=== PATIENT | female | born 1935 | race Caucasian/White ===

== ENCOUNTER 2018-07-03 20:16 | Emergency (ER) | payer OTHER ==
[~2018-07-03] VITALS: Ht 167.6 cm; Wt 72.6 kg
[~2018-07-03 20:16] MED LIST: CELEBREX200 MG PO; FENOFIBRATE134 MG PO; LISINOPRIL40 MG PO; LORATADINE10 MG PO; PAXIL10 MG PO
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
--- OUTSIDE RECORDS SUMMARY | 2018-08-16 03:36 | XMS REPORT ---
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 Active Problem Urinary tract infection N39.0 Active Problem Acute upper respiratory infection J06.9 Active Problem Acute pharyngitis J02.9 Active Problem Abdominal aneurysm, ruptured I71.3 Active Problem Cellulitis of other sites L03.818 Active Problem Need for prophylactic vaccination and inoculation against influenza V04.81 Active Problem 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 Active Problem 1St degree AV block I44.0 Active Problem Essential hypertension I10 Active Problem RBBB I45.10 Active Problem Other specified cardiac dysrhythmias I49.8 Active Problem Other peripheral vascular disease I73.89 Active Problem Pre-op evaluation Z01.818 Active Problem Abnormal EKG R94.31 Active Problem Body mass index 25.0-25.9, adult Z68.25 Active Problem Aortic aneurysm I71.9 Active Problem Mechanical complication of genitourinary device, implant, and graft, other T83.89XA Active Problem Encounter for general adult medical examination with abnormal findings Z00.01 Active Problem Other and unspecified hyperlipidemia E78.5 Active Problem Anxiety state F41.1 Active Problem Routine general medical examination at a health care facility Z00.00 Active Problem Major depressive disorder, recurrent episode F33.9 Active Problem Senile cataract H25.9 Active Problem Atherosclerosis of aorta I70.0 Active Problem Sciatica of right side M54.31 Active Problem Body mass index (BMI) of 20.0-20.9 in adult Z68.20 Active Problem 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 Active Problem 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 Problem Acute frontal sinusitis J01.10 Active Problem Allergic rhinitis due to pollen J30.1 Active Problem Orthostatic hypotension I95.1 Active Problem Cystocele, midline N81.11 Active Problem Insomnia G47.00 Active Problem Anal or rectal pain K62.89 Active Problem Regional enteritis K50.90 Active Problem Generalized osteoarthrosis, unspecified site M15.9 Active Problem Neoplasm of uncertain behavior of skin D48.5 Active Problem Mixed urge and stress incontinence N39.46 Active Problem Sciatica M54.30 Active Problem Dizziness and giddiness R42 Active Problem Hypersomnia due to another medical condition 327.14 Active Medications Medication Code System Code Instructions Start Date End Date Status Dosage Zithromax Z-Arnulfo [facility] [address]-07 250 MG Orally Once a day March 07, 2017 March 12, 2017 Active 2 tablets on the first day, then 1 tablet daily for 4 days Benzonatate [facility] [address]-43 200 MG Orally Three times a day prn cough March 07, 2017 Active 1 capsule as needed Results No Known Results Summary Purpose [employer] Submission
--- OUTSIDE RECORDS SUMMARY | 2018-08-16 03:37 | XMS REPORT ---
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 Active Problem Other and unspecified hyperlipidemia E78.5 Active Problem Body mass index 25.0-25.9, adult Z68.25 Active Problem Aortic aneurysm I71.9 Active Problem Regional enteritis K50.90 Active Problem Insomnia G47.00 Active Problem Orthostatic hypotension I95.1 Active Problem Dizziness and giddiness R42 Active Problem Acute frontal sinusitis J01.10 Active Problem Sciatica M54.30 Active Problem Need for prophylactic vaccination and inoculation against influenza V04.81 Active Problem Neoplasm of uncertain behavior of skin D48.5 Active Problem Hypersomnia due to another medical condition 327.14 Active Problem Other specified cardiac dysrhythmias I49.8 Active Problem Other peripheral vascular disease I73.89 Active Problem 1St degree AV block I44.0 Active Problem RBBB I45.10 Active Problem Body mass index (BMI) of 20.0-20.9 in adult Z68.20 Active Problem 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 Active Assessment Other chronic pain G89.29 Active Assessment Sciatica M54.30 Active Assessment Muscle spasm M62.838 Active Problem First degree hemorrhoids K64.0 Active Problem Atherosclerosis of aorta I70.0 Active Problem Other chronic pain G89.29 Active Problem Mixed urge and stress incontinence N39.46 Active Problem Senile cataract H25.9 Active Problem Need for prophylactic vaccination and inoculation against influenza Z23 Active Problem Routine general medical examination at a health care facility Z00.00 Active Problem 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 Active Problem Pre-op evaluation Z01.818 Active Problem Sciatica of right side M54.31 Active Problem History of recent fall Z91.81 Active Problem Acute post-traumatic headache, not intractable G44.319 Active Problem Muscle spasm M62.838 Active Problem Acute upper respiratory infection J06.9 Active Problem Encounter for general adult medical examination with abnormal findings Z00.01 Active Problem Major depressive disorder, recurrent episode F33.9 Active Problem Abnormal EKG R94.31 Active Problem Anxiety state F41.1 Active Problem Gastroesophageal reflux disease without esophagitis K21.9 Active Problem Allergic rhinitis due to pollen J30.1 Active Problem GERD with esophagitis K21.0 Active Problem Generalized osteoarthrosis, unspecified site M15.9 Active Problem 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 Problem 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 Active Problem Mechanical complication of genitourinary device, implant, and graft, other T83.89XA Active Problem Anal or rectal pain K62.89 Active Problem Pernicious anemia D51.0 Active Problem Cystocele, midline N81.11 Active Medications Medication Code System Code Instructions Start Date End Date Status Dosage Fenofibrate [facility] 41754971331 54 Active TAKE ONE TABLET BY MOUTH DAILY WITH MEALS Lisinopril [facility] 51489682044 40 Active TAKE ONE TABLET BY MOUTH EVERY DAY Hydrochlorothiazide [facility] 29817154192 25 MG Orally Once a day January 19, 2018 Active 1 tablet in the morning Celebrex [facility] 28214003456 200 Active TAKE ONE CAPSULE BY MOUTH DAILY Loratadine [facility] 32297826939 10 Active TAKE ONE TABLET BY MOUTH DAILY Amlodipine Besylate [facility] 30527951586 10 MG Orally Once a day Active 1 tablet Paroxetine HCl ND 94999628240 20 MG Orally Once a day Active 1 tablet in the morning Omeprazole [facility] 09337769576 40 MG Orally Once a day April 14, 2017 Active 1 capsule Baclofen [facility] 25358400821 10 Orally Three times a day Active 1 tablet with food or milk Gabapentin ND 66290601234 100 mg Orally BiD and 2 caps at night Active 1 capsule Paxil [facility] 94127919399 20 Active TAKE ONE TABLET BY MOUTH DAILY Vital Signs Date/Time: April 20, 2018 BMI 26.47 Index Weight 164 lbs Height 66 in Temperature 97.8 F Cardiac Monitoring Heart Rate 74 /min Blood Pressure Diastolic 70 mm Hg Blood Pressure Systolic 122 mm Hg Results No Known Results Summary Purpose [employer] Submission
--- OUTSIDE RECORDS SUMMARY | 2018-08-16 03:37 | XMS REPORT ---
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 Active Problem Other and unspecified hyperlipidemia E78.5 Active Problem Body mass index 25.0-25.9, adult Z68.25 Active Problem Aortic aneurysm I71.9 Active Problem Regional enteritis K50.90 Active Problem Dizziness and giddiness R42 Active Problem Acute frontal sinusitis J01.10 Active Problem Insomnia G47.00 Active Problem Hypersomnia due to another medical condition 327.14 Active Problem Sciatica M54.30 Active Problem Orthostatic hypotension I95.1 Active Problem Neoplasm of uncertain behavior of skin D48.5 Active Problem RBBB I45.10 Active Problem Other specified cardiac dysrhythmias I49.8 Active Problem Need for prophylactic vaccination and inoculation against influenza V04.81 Active Problem 1St degree AV block I44.0 Active Problem 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 Active Problem Anxiety state F41.1 Active Problem Major depressive disorder, recurrent episode F33.9 Active Problem Acute upper respiratory infection J06.9 Active Problem Pernicious anemia D51.0 Active Problem Other peripheral vascular disease I73.89 Active Problem Allergic rhinitis due to pollen J30.1 Active Problem Senile cataract H25.9 Active Problem Routine general medical examination at a health care facility Z00.00 Active Problem Sciatica of right side M54.31 Active Problem 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 Active Problem Acute post-traumatic headache, not intractable G44.319 Active Problem Gastroesophageal reflux disease without esophagitis K21.9 Active Problem History of recent fall Z91.81 Active Problem Need for prophylactic vaccination and inoculation against influenza Z23 Active Problem Abnormal EKG R94.31 Active Problem Body mass index (BMI) of 20.0-20.9 in adult Z68.20 Active Problem Pre-op evaluation Z01.818 Active Problem Generalized osteoarthrosis, unspecified site M15.9 Active Problem GERD with esophagitis K21.0 Active Problem Mixed urge and stress incontinence N39.46 Active Problem Encounter for general adult medical examination with abnormal findings Z00.01 Active Problem Other chronic pain G89.29 Active Problem Anal or rectal pain K62.89 Active Problem 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 Problem Cystocele, midline N81.11 Active Problem Mechanical complication of genitourinary device, implant, and graft, other T83.89XA Active Problem First degree hemorrhoids K64.0 Active Problem Atherosclerosis of aorta I70.0 Active Medications Medication Code System Code Instructions Start Date End Date Status Dosage Amlodipine Besylate [facility] 37384643668 10 mg Orally Once a day January 19, 2018 Active 1 tablet Lisinopril [facility] 11690060788 40 mg Orally Once a day January 19, 2018 Active 1 tablet Hydrochlorothiazide [facility] 01386466719 25 MG Orally Once a day January 19, 2018 Active 1 tablet in the morning Results No Known Results Summary Purpose [employer] Submission
--- OUTSIDE RECORDS SUMMARY | 2018-08-16 03:37 | XMS REPORT ---
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 Barn And Property Manager Name Role Phone Yomi Barajas CP Unavailable Allergies, Adverse Reactions, Alerts Substance Reaction Event Type sulfa Info Not Available Drug Allergy Encounters Encounter Location Date [place]ill [facility] [place] Aug 25, 2014 Allergies [facility] [place] Sep 03, 2014 refills [facility] [place] Sep 23, 2014 Sinus pain [facility] [place] Sep 25, 2014 H&P 2014 [facility] [place] April 24, 2014 bacterial infection [facility] [place] Jun 30, 2014 medication [facility] Jul 04, 2014 cramps, H&P [facility] [place] March 20, 2015 dizziness [facility] [place] Oct 02, 2014 Unknown [facility] [place] Nov 18, 2014 Unknown [facility] [place] Dec 21, 2015 Refill [facility] May 29, 2015 Medication refills [facility] [place] Aug 07, 2015 Problems Problem Type Condition ICD-9 Code Onset Dates Condition Status Problem 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 Problem Anal or rectal pain K62.89 Active Problem Need for prophylactic vaccination and inoculation against influenza Z23 Active Problem Allergic rhinitis due to pollen J30.1 Active Problem Other chronic pain G89.29 Active Problem First degree hemorrhoids K64.0 Active Assessment 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 Active Problem Pernicious anemia D51.0 Active Problem 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 Active Problem Urinary tract infection N39.0 Active Problem Hypersomnia due to another medical condition 327.14 Active Problem Acute pharyngitis J02.9 Active Problem Neoplasm of uncertain behavior of skin D48.5 Active Problem Abdominal aneurysm, ruptured I71.3 Active Problem Sciatica M54.30 Active Problem 1St degree AV block I44.0 Active Problem Need for prophylactic vaccination and inoculation against influenza V04.81 Active Problem Routine general medical examination at a health care facility Z00.00 Active Problem Preoperative clearance Z01.818 Active Problem Essential hypertension I10 Active Problem 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 Active Problem Atherosclerosis of aorta I70.0 Active Problem 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 Active Problem Cellulitis of other sites L03.818 Active Problem Body mass index (BMI) of 20.0-20.9 in adult Z68.20 Active Problem Other peripheral vascular disease I73.89 Active Problem Acute upper respiratory infection J06.9 Active Problem RBBB I45.10 Active Problem 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 Active Problem Senile cataract H25.9 Active Assessment Preoperative clearance Z01.818 Active Problem Other specified cardiac dysrhythmias I49.8 Active Problem Mixed urge and stress incontinence N39.46 Active Problem Body mass index 25.0-25.9, adult Z68.25 Active Problem Cystocele, midline N81.11 Active Problem Insomnia G47.00 Active Problem Mechanical complication of genitourinary device, implant, and graft, other T83.89XA Active Problem Other and unspecified hyperlipidemia E78.5 Active Problem Generalized osteoarthrosis, unspecified site M15.9 Active Problem Aortic aneurysm I71.9 Active Problem Major depressive disorder, recurrent episode F33.9 Active Problem Orthostatic hypotension I95.1 Active Problem Anxiety state F41.1 Active Problem Dizziness and giddiness R42 Active Problem Regional enteritis K50.90 Active Problem Acute frontal sinusitis J01.10 Active Medications Medication Code System Code Instructions Start Date End Date Status Dosage Celebrex [facility] 88088500293 200 Active TAKE ONE CAPSULE BY MOUTH DAILY Paxil [facility] 12027723217 20 Active TAKE ONE TABLET BY MOUTH EVERY DAY Lisinopril [facility] 58040940981 40 Active TAKE ONE TABLET BY MOUTH EVERY DAY Loratadine [facility] 04839901732 10 Active TAKE ONE TABLET BY MOUTH EVERY DAY Fenofibrate [facility] [address]-26 54 Orally daily Active TAKE ONE TABLET BY MOUTH EVERY DAY WITH A MEAL Hydrochlorothiazide [facility] 46410426937 25 Active TAKE ONE TABLET BY MOUTH EVERY DAY Lorazepam [facility] 86842202385 0.5 Active TAKE ONE TABLET BY MOUTH DAILY NEEDED FOR ANXIETY NEEDED Flonase [facility] [address]-80 50 MCG/ACT Nasally Once a day Sep 09, 2013 Active 1 spray in each nostril Social History Social History Element Qualifiers Date Reported Tobacco Use: . Are you a: never smoker Dec 21, 2015 Use of recreational / street drugs? . Answer: No Dec 21, 2015 Marital Status: . , lives with grand daughter Dec 21, 2015 Do you exercise? . Answer: No Dec 21, 2015 Do you drink alcohol? . Status: Yes, Type: Socially Dec 21, 2015 Family history Qualifier Description Comment Date Reported Maternal Grandmother Comment not available Dec 21, 2015 Paternal Grandmother Comment not available Dec 21, 2015 Siblings sister Dec 21, 2015 Maternal Grandfather Comment not available Dec 21, 2015 Children Comment not available Dec 21, 2015 Father Comment not available Dec 21, 2015 Paternal Grandfather Comment not available Dec 21, 2015 Mother Comment not available Dec 21, 2015 Other: Comment not available Dec 21, 2015 Vital Signs Date/Time: Dec 21, 2015 Weight 160 lbs Height 66 in Temperature 97.4 F Cardiac Monitoring Heart Rate 90 /min Blood Pressure Diastolic 76 mm Hg Blood Pressure Systolic 120 mm Hg Summary Purpose eClinicalWorks Submission
--- OUTSIDE RECORDS SUMMARY | 2018-08-16 03:37 | XMS REPORT ---
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 Acute Care Surgeon Name Role Phone Yomi Barajas CP Unavailable Allergies, Adverse Reactions, Alerts Substance Reaction Event Type sulfa Info Not Available Drug Allergy Problems Problem Type Condition Code Onset Dates Condition Status Assessment Other specified cardiac dysrhythmias I49.8 Active Assessment Sciatica of right side M54.31 Active Assessment Neoplasm of uncertain behavior of skin D48.5 Active Assessment Atherosclerosis of aorta I70.0 Active Assessment Other chronic pain G89.29 Active Assessment Allergic rhinitis due to pollen J30.1 Active Assessment Pernicious anemia D51.0 Active Assessment Sciatica M54.30 Active Problem Abdominal aneurysm, ruptured I71.3 Active [...] I71.9 Active Problem Regional enteritis K50.90 Active Assessment Orthostatic hypotension I95.1 Active Assessment Insomnia G47.00 Active Assessment Abnormal EKG R94.31 Active Assessment Cystocele, midline N81.11 Active Assessment Anal or rectal pain K62.89 Active Assessment Regional enteritis K50.90 Active Assessment Mixed urge and stress incontinence N39.46 Active Assessment First degree hemorrhoids K64.0 Active Assessment 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 Assessment RBBB I45.10 Active Problem Dizziness and giddiness R42 Active [...] Problem 1St degree AV block I44.0 Active Assessment Major depressive disorder, recurrent episode F33.9 Active Assessment Other and unspecified hyperlipidemia E78.5 Active Assessment Anxiety state F41.1 Active Assessment Generalized osteoarthrosis, unspecified site M15.9 Active Problem 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 Active Assessment Encounter for general adult medical examination with abnormal findings Z00.01 Active Assessment Essential hypertension I10 Active Assessment 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 Active Assessment Acute post-traumatic headache, not intractable G44.319 Active Assessment History of recent fall Z91.81 Active Problem Anxiety state F41.1 Active Problem Major depressive disorder, recurrent episode F33.9 Active Problem Acute upper respiratory infection J06.9 Active Problem Pernicious anemia D51.0 Active Problem Other peripheral vascular disease I73.89 Active Problem Allergic rhinitis due to pollen J30.1 Active Problem Senile cataract H25.9 Active Assessment Colon cancer screening Z12.11 Active Problem Routine general medical examination at a health care facility Z00.00 Active Assessment BMI 26.0-26.9,adult Z68.26 Active Problem Sciatica of right side M54.31 [...] Problem Generalized osteoarthrosis, unspecified site M15.9 Active Assessment Senile cataract H25.9 Active Problem GERD with esophagitis K21.0 Active [...] Active Problem Atherosclerosis of aorta I70.0 Active Assessment 1St degree AV block I44.0 Active Assessment Other peripheral vascular disease I73.89 Active Medications Medication Code System Code Instructions Start Date End Date Status Dosage Fenofibrate [facility] [id number] 54 Active TAKE ONE TABLET BY MOUTH DAILY WITH MEALS Benzonatate [facility] 13345372879 200 MG Orally Three times a day prn cough April 14, 2017 Active 1 capsule as needed Omeprazole [facility] 85447794176 40 MG Orally Once a day April 14, 2017 Active 1 capsule Benzonatate [facility] 90589346122 200 MG Orally Three times a day prn cough March 07, 2017 Active 1 capsule as needed Lorazepam [facility] 75850981536 0.5 Active TAKE ONE TABLET BY MOUTH DAILY NEEDED FOR ANXIETY NEEDED Hydrochlorothiazide [facility] 52949752778 25 PO daily Active take one tablet by mouth once a day Amlodipine Besylate [facility] 26308751744 5 MG Orally Once a day Jan 09, 2018 Active 1 tablet Celebrex [facility] 67198850803 200 Active TAKE ONE CAPSULE BY MOUTH DAILY Claritin [facility] 58591231796 10 MG Orally Once a day Active 1 tablet PredniSONE [facility] 86436164335 10 MG Orally Once a day May 18, 2017 Active 3 tabs qd x 3d, 2 tabs qd x 5d, 1 tab qd x 5d with food or milk Loratadine [facility] 81110749296 10 Active TAKE ONE TABLET BY MOUTH DAILY Flonase [facility] 69767687051 50 MCG/ACT Nasally Once a day Active 1 spray in each nostril Gabapentin [facility] 22354425735 100 mg Orally three times a day (tid) as needed for (prn) nerve pain Active 1 capsule Celebrex [facility] 67424999464 200 PO daily Jan 04, 2019 Active take one capsule by mouth daily Baclofen [facility] 13722362760 10 Orally Three times a day Active 1 tablet with food or milk Lisinopril [facility] 09247741701 40 Active TAKE ONE TABLET BY MOUTH EVERY DAY Paxil [facility] 00016337953 20 PO once a day Active take one tablet by mouth every day Aspirin [facility] 51037794380 81 MG Orally Once a day Active 1 tablet Nexium [facility] 26939772788 20 MG Orally daily Active 1 capsule Hydrochlorothiazide [facility] 34762058389 25 Active TAKE ONE TABLET BY MOUTH ONCE A DAY Gabapentin [facility] 55030379230 100 Orally three times a day (tid) as needed for (prn) nerve pain Active 1 capsule Paxil [facility] 04302828169 20 Active TAKE ONE TABLET BY MOUTH DAILY Cyclobenzaprine HCl [facility] 89407377384 10 Orally Three times a day Active 1 tablet as needed for muscle relaxation Loratadine [facility] 94603330610 10 Active TAKE ONE TABLET BY MOUTH DAILY Omeprazole [facility] 17478823016 40 Orally Once a day Active 1 capsule Lisinopril [facility] 62830513392 40 PO daily Active take one tablet by mouth every day Vital Signs Date/Time: Jan 09, 2018 BMI 26.34 Index Weight 163.2 lbs Height 66 in Temperature 98.1 F Cardiac Monitoring Heart Rate 66 /min Blood Pressure Diastolic 84 mm Hg Blood Pressure Systolic 140 mm Hg Results No Known Results Summary Purpose [employer] Submission
--- OUTSIDE RECORDS SUMMARY | 2018-08-16 03:37 | XMS REPORT ---
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 Check Weigher Name Role Phone Yomi Barajas CP Unavailable [...] Cellulitis of other sites L03.818 Active Problem 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 Active Problem Essential hypertension I10 Active Problem Body mass index 25.0-25.9, adult Z68.25 Active Problem Aortic aneurysm I71.9 Active Problem Other and unspecified hyperlipidemia E78.5 Active Problem Acute frontal sinusitis J01.10 Active Problem Orthostatic hypotension I95.1 Active Problem Insomnia G47.00 Active Problem Regional enteritis K50.90 Active Problem Neoplasm of uncertain behavior of skin D48.5 Active Problem Sciatica M54.30 Active Problem Dizziness and giddiness R42 Active Problem Hypersomnia due to another medical condition 327.14 Active Assessment Cough R05 Active Assessment Seasonal allergic rhinitis due to other allergic trigger J30.89 Active Assessment Anxiety state F41.1 Active Assessment Bronchitis J40 Active Problem 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 Active Problem Acute upper respiratory infection J06.9 Active Problem Need for prophylactic vaccination and inoculation against influenza V04.81 Active Assessment 1St degree AV block I44.0 Active Problem 1St degree AV block I44.0 Active Problem RBBB I45.10 Active Problem Other specified cardiac dysrhythmias I49.8 Active Problem Other peripheral vascular disease I73.89 Active Problem Pre-op evaluation Z01.818 Active Problem Abnormal EKG R94.31 Active Problem Encounter for general adult medical examination with abnormal findings Z00.01 Active Problem Mechanical complication of genitourinary device, implant, and graft, other T83.89XA Active Problem Routine general medical examination at a health care facility Z00.00 Active Problem Anxiety state F41.1 Active Problem Senile cataract H25.9 Active Problem Major depressive disorder, recurrent episode F33.9 Active Problem Sciatica of right side M54.31 Active Problem Atherosclerosis of aorta I70.0 Active Problem 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 Active Problem Body mass index (BMI) of 20.0-20.9 in adult Z68.20 Active Problem 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 Problem Allergic rhinitis due to pollen J30.1 Active Problem Cystocele, midline N81.11 Active Problem Anal or rectal pain K62.89 Active Problem Generalized osteoarthrosis, unspecified site M15.9 Active Problem Mixed urge and stress incontinence N39.46 Active Medications Medication Code System Code Instructions Start Date End Date Status Dosage Hydrochlorothiazide [facility] 98510207106 25 Active TAKE ONE TABLET BY MOUTH ONCE A DAY Fenofibrate [facility] 03249550913 54 Active TAKE ONE TABLET BY MOUTH DAILY WITH A MEAL Paxil [facility] 46685569704 20 Active TAKE ONE TABLET BY MOUTH DAILY Cyclobenzaprine HCl [facility] 82848908819 10 Orally Three times a day Active 1 tablet as needed for muscle relaxation Benzonatate [facility] [address]-82 200 MG Orally Three times a day prn cough March 07, 2017 Active 1 capsule as needed Lisinopril [facility] 50917308248 40 Active TAKE ONE TABLET BY MOUTH EVERY DAY Claritin [facility] [address]-57 10 MG Orally Once a day Active 1 tablet Mucinex [facility] [address]-34 600 MG Orally every 12 hrs March 16, 2017 March 30, 2017 Active 1 tablet as needed Celebrex [facility] 72208453083 200 Active TAKE ONE CAPSULE BY MOUTH DAILY Gabapentin [facility] [address]-57 100 MG Orally three times a day (tid) as needed for (prn) nerve pain Sep 16, 2016 Active 1 capsule Flonase [facility] [address]-51 50 MCG/ACT Nasally Once a day Sep 09, 2013 Active 1 spray in each nostril Aspirin [facility] [address]-79 81 MG Orally Once a day Active 1 tablet Loratadine [facility] 73008315985 10 by mouth daily Jul 14, 2017 Active take one tablet by mouth daily Lorazepam [facility] 25438974085 0.5 Active TAKE ONE TABLET BY MOUTH DAILY NEEDED FOR ANXIETY NEEDED Loratadine [facility] 50560711983 10 Active TAKE ONE TABLET BY MOUTH DAILY Vital Signs Date/Time: March 16, 2017 BMI 25.82 Index Weight 160 lbs Height 66 in Temperature 97.2 F Cardiac Monitoring Heart Rate 78 /min Blood Pressure Diastolic 72 mm Hg Blood Pressure Systolic 128 mm Hg Results No Known Results Summary Purpose [employer] Submission
--- OUTSIDE RECORDS SUMMARY | 2018-08-16 03:37 | XMS REPORT ---
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 Weaver [employer] Name Role Phone Yomi Barajas CP Unavailable [...] congestive heart failure I11.9 Active Assessment Acute cystitis without hematuria N30.00 Active Problem Anxiety state F41.1 Active Problem [...] Instructions Start Date End Date Status Dosage Lisinopril [facility] 12069325510 40 Active TAKE ONE TABLET BY MOUTH EVERY DAY Baclofen [facility] 48329474269 10 Orally Three times a day Active 1 tablet with food or milk Celebrex [facility] 73628214782 200 PO daily Jan 04, 2019 Active take one capsule by mouth daily Flonase [facility] 74951766827 50 MCG/ACT Nasally Once a day Active 1 spray in each nostril Paxil [facility] 91392720193 20 Active TAKE ONE TABLET BY MOUTH DAILY Benzonatate [facility] 29795266940 200 MG Orally Three times a day prn cough March 07, 2017 Active 1 capsule as needed Lorazepam [facility] 76344064233 0.5 Active TAKE ONE TABLET BY MOUTH DAILY NEEDED FOR ANXIETY NEEDED Amlodipine Besylate ND 12667547081 10 mg Orally Once a day January 19, 2018 Active 1 tablet Hydrochlorothiazide [facility] 77107035773 25 PO daily Active take one tablet by mouth once a day Amlodipine Besylate [facility] 78038001367 5 MG Orally Once a day Jan 09, 2018 Active 1 tablet Aspirin [facility] 38562125515 81 MG Orally Once a day Active 1 tablet Claritin [facility] 18864674415 10 MG Orally Once a day Active 1 tablet Nexium [facility] 84285598377 20 MG Orally daily Active 1 capsule Fenofibrate [facility] 01720431323 54 Active TAKE ONE TABLET BY MOUTH DAILY WITH MEALS Cipro [facility] 17735079286 500 mg Orally Once a day February 12, 2018 February 22, 2018 Active 1 tablet Celebrex [facility] 76936919607 200 Active TAKE ONE CAPSULE BY MOUTH DAILY Cyclobenzaprine HCl [facility] 79864552450 10 Orally Three times a day Active 1 tablet as needed for muscle relaxation Paxil ND 60188147001 20 PO once a day Active take one tablet by mouth every day Lisinopril [facility] 89355642134 40 PO daily Active take one tablet by mouth every day Loratadine [facility] 38423973267 10 Active TAKE ONE TABLET BY MOUTH DAILY Lisinopril [facility] 94320557459 40 mg Orally Once a day January 19, 2018 Active 1 tablet Omeprazole [facility] 28876113744 40 MG Orally Once a day April 14, 2017 Active 1 capsule Hydrochlorothiazide [facility] 25482595739 25 MG Orally Once a day January 19, 2018 Active 1 tablet in the morning Gabapentin [facility] 89213391596 100 mg Orally three times a day (tid) as needed for (prn) nerve pain Active 1 capsule Paroxetine HCl ND 65706159641 20 MG Orally Once a day Active 1 tablet in the morning Vital Signs Date/Time: February 12, 2018 BMI 26.34 Index Weight 163.2 lbs Height 66 in Temperature 96.9 F Cardiac Monitoring Heart Rate 64 /min Blood Pressure Diastolic 84 mm Hg Blood Pressure Systolic 146 mm Hg Results No Known Results Summary Purpose [employer] Submission
--- OUTSIDE RECORDS SUMMARY | 2018-08-16 03:37 | XMS REPORT ---
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 Active Problem Acute pharyngitis J02.9 Active Problem Abdominal aneurysm, ruptured I71.3 Active Problem Cellulitis of other sites L03.818 Active Problem 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 Active Problem Essential hypertension I10 Active Problem Other and unspecified hyperlipidemia E78.5 Active Problem Aortic aneurysm I71.9 Active Problem Regional enteritis K50.90 Active Problem Insomnia G47.00 Active Problem Body mass index 25.0-25.9, adult Z68.25 Active Problem Dizziness and giddiness R42 Active Problem Hypersomnia due to another medical condition 327.14 Active Problem Acute frontal sinusitis J01.10 Active Problem Orthostatic hypotension I95.1 Active Problem Need for prophylactic vaccination and inoculation against influenza V04.81 Active Problem 1St degree AV block I44.0 Active Problem Neoplasm of uncertain behavior of skin D48.5 Active Problem Sciatica M54.30 Active Problem 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 Active Problem Acute upper respiratory infection J06.9 Active Problem Body mass index (BMI) of 20.0-20.9 in adult Z68.20 Active Problem Atherosclerosis of aorta I70.0 Active Problem RBBB I45.10 Active Problem Other peripheral vascular disease I73.89 Active Problem Other specified cardiac dysrhythmias I49.8 Active Problem Routine general medical examination at a health care facility Z00.00 Active Problem Senile cataract H25.9 Active Problem GERD with esophagitis K21.0 Active Problem Encounter for general adult medical examination with abnormal findings Z00.01 Active Problem Gastroesophageal reflux disease without esophagitis K21.9 Active Problem Mixed urge and stress incontinence N39.46 Active Problem Sciatica of right side M54.31 Active Problem Generalized osteoarthrosis, unspecified site M15.9 Active Problem 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 Active Problem Mechanical complication of genitourinary device, implant, and graft, other T83.89XA Active Problem Pre-op evaluation Z01.818 Active Problem Anxiety state F41.1 Active Problem Abnormal EKG R94.31 Active Problem Major depressive disorder, recurrent episode F33.9 Active Problem Need for prophylactic vaccination and inoculation against influenza Z23 Active Problem Other chronic pain G89.29 Active Problem 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
--- OUTSIDE RECORDS SUMMARY | 2018-08-16 03:37 | XMS REPORT ---
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 Solutions Developer Name Role Phone Yomi Barajas CP Unavailable [...] Instructions Start Date End Date Status Dosage Flonase [facility] 42854343221 50 MCG/ACT Nasally Once a day Active 1 spray in each nostril Nexium [facility] 27374435757 20 MG Orally daily Active 1 capsule Cipro [facility] 76891349344 250 Orally every 12 hrs Active 1 tablet Claritin [facility] 45728831740 10 MG Orally Once a day Active 1 tablet Baclofen [facility] 05502244233 10 Orally Three times a day Active 1 tablet with food or milk Omeprazole [facility] 10770701280 40 MG Orally Once a day April 14, 2017 Active 1 capsule Paroxetine HCl [facility] 03416404745 20 MG Orally Once a day Active 1 tablet in the morning Cyclobenzaprine HCl [facility] 26774373665 10 Orally Three times a day Active 1 tablet as needed for muscle relaxation Lisinopril [facility] 91818158043 40 mg Orally Once a day January 19, 2018 Active 1 tablet Hydrochlorothiazide [facility] 83713089666 25 PO daily Active take one tablet by mouth once a day Loratadine [facility] 37298575365 10 Active TAKE ONE TABLET BY MOUTH DAILY Lisinopril [facility] 42859024982 40 Active TAKE ONE TABLET BY MOUTH EVERY DAY Hydrochlorothiazide [facility] 05609686136 25 MG Orally Once a day January 19, 2018 Active 1 tablet in the morning Amlodipine Besylate [facility] 06045452724 10 MG Orally Once a day Active 1 tablet Lorazepam [facility] 81498772781 0.5 Active TAKE ONE TABLET BY MOUTH DAILY NEEDED FOR ANXIETY NEEDED Lisinopril ND 87073838845 40 PO daily Active take one tablet by mouth every day Paxil [facility] 11369343327 20 Active TAKE ONE TABLET BY MOUTH DAILY Fenofibrate [facility] 54843395017 54 Active TAKE ONE TABLET BY MOUTH DAILY WITH MEALS Aspirin [facility] 44838242897 81 MG Orally Once a day Active 1 tablet Benzonatate [facility] 98903910403 200 MG Orally Three times a day prn cough March 07, 2017 Active 1 capsule as needed Cipro [facility] 45675397613 500 mg Orally Once a day March 04, 2018 Active 1 tablet Celebrex [facility] 61289511255 200 PO daily Jan 04, 2019 Active take one capsule by mouth daily Amlodipine Besylate [facility] 16922750240 5 MG Orally Once a day Jan 09, 2018 Active 1 tablet Celebrex [facility] 18344640831 200 Active TAKE ONE CAPSULE BY MOUTH DAILY Amlodipine Besylate [facility] 89752983974 10 mg Orally Once a day January 19, 2018 Active 1 tablet Paxil [facility] 29306573293 20 PO once a day Active take one tablet by mouth every day Gabapentin [facility] 75621904201 100 mg Orally three times a day (tid) as needed for (prn) nerve pain Active 1 capsule Vital Signs Date/Time: February 22, 2018 BMI 26.21 Index Weight 162.4 lbs Height 66 in Temperature 97.6 F Cardiac Monitoring Heart Rate 72 /min Blood Pressure Diastolic 60 mm Hg Blood Pressure Systolic 108 mm Hg Results No Known Results Summary Purpose eClinicalWorks Submission
--- OUTSIDE RECORDS SUMMARY | 2018-08-16 03:37 | XMS REPORT ---
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 Active Problem Acute upper respiratory infection J06.9 Active Problem Body mass index (BMI) of 20.0-20.9 in adult Z68.20 Active Problem Atherosclerosis of aorta I70.0 Active Problem RBBB I45.10 Active Assessment GERD with esophagitis K21.0 Active Problem Other peripheral vascular disease I73.89 [...] Instructions Start Date End Date Status Dosage Benzonatate [facility] [address]-77 200 MG Orally Three times a day prn cough March 07, 2017 Active 1 capsule as needed Claritin [facility] [address]-00 10 MG Orally Once a day Active 1 tablet Celebrex [facility] 61147574098 200 Active TAKE ONE CAPSULE BY MOUTH DAILY Lisinopril [facility] 77514870133 40 Active TAKE ONE TABLET BY MOUTH EVERY DAY Flonase [facility] [address]-74 50 MCG/ACT Nasally Once a day Sep 09, 2013 Active 1 spray in each nostril Benzonatate [facility] [address]-58 200 MG Orally Three times a day prn cough April 14, 2017 Active 1 capsule as needed Paxil [facility] 81033450561 20 Active TAKE ONE TABLET BY MOUTH DAILY Gabapentin [facility] [address]-13 100 MG Orally three times a day (tid) as needed for (prn) nerve pain Sep 16, 2016 Active 1 capsule Loratadine [facility] 31233552637 10 by mouth daily Active take one tablet by mouth daily Fenofibrate [facility] 42723345085 54 Active TAKE ONE TABLET BY MOUTH DAILY WITH A MEAL Hydrochlorothiazide [facility] 87683665331 25 Active TAKE ONE TABLET BY MOUTH ONCE A DAY Omeprazole [facility] [address]-73 40 MG Orally Once a day April 14, 2017 Active 1 capsule Aspirin [facility] [address]-53 81 MG Orally Once a day Active 1 tablet Lorazepam [facility] 28720589425 0.5 Active TAKE ONE TABLET BY MOUTH DAILY NEEDED FOR ANXIETY NEEDED Nexium [facility] [address]-80 20 MG Orally daily Active 1 capsule Vital Signs Date/Time: April 14, 2017 BMI 25.01 Index Weight 155 lbs Height 66 in Temperature 96.2 F Cardiac Monitoring Heart Rate 72 /min Blood Pressure Diastolic 84 mm Hg Blood Pressure Systolic 128 mm Hg Results No Known Results Summary Purpose [employer] Submission
--- OUTSIDE RECORDS SUMMARY | 2018-08-16 03:37 | XMS REPORT ---
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 Active Problem Pernicious anemia D51.0 Active Problem Urinary tract infection N39.0 Active Problem Acute pharyngitis J02.9 Active Problem Abdominal aneurysm, ruptured I71.3 Active Problem Cellulitis of other sites L03.818 Active Problem 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 Active Problem Essential hypertension I10 Active Problem Other and unspecified hyperlipidemia E78.5 Active Problem Insomnia G47.00 Active Problem Body mass index 25.0-25.9, adult Z68.25 Active Problem Aortic aneurysm I71.9 Active Problem Orthostatic hypotension I95.1 Active Problem Dizziness and giddiness R42 Active Problem Regional enteritis K50.90 Active Problem Acute frontal sinusitis J01.10 Active Problem Sciatica M54.30 Active Problem Need for prophylactic vaccination and inoculation against influenza V04.81 Active Problem Hypersomnia due to another medical condition 327.14 Active Problem Neoplasm of uncertain behavior of skin D48.5 Active Assessment Gastroesophageal reflux disease without esophagitis K21.9 Active Assessment Seasonal allergic rhinitis due to other allergic trigger J30.89 Active Assessment Persistent cough R05 Active Problem 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 Active Problem Acute upper respiratory infection J06.9 Active Problem Body mass index (BMI) of 20.0-20.9 in adult Z68.20 Active Problem 1St degree AV block I44.0 Active Assessment Bronchitis J40 Active Problem RBBB I45.10 Active Problem Other peripheral vascular disease I73.89 Active Problem Senile cataract H25.9 Active Problem Other specified cardiac dysrhythmias I49.8 Active Problem Encounter for general adult medical examination with abnormal findings Z00.01 Active Problem Pre-op evaluation Z01.818 Active Problem Gastroesophageal reflux disease without esophagitis K21.9 Active Problem Generalized osteoarthrosis, unspecified site M15.9 [...] Problem Atherosclerosis of aorta I70.0 Active Problem Allergic rhinitis due to pollen J30.1 Active Problem Need for prophylactic vaccination and inoculation against influenza Z23 Active Problem Anal or rectal pain K62.89 Active Problem 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 [address]-15 600 MG Orally every 12 hrs March 16, 2017 March 30, 2017 Active 1 tablet as needed Claritin [facility] [address]-81 10 MG Orally Once a day Active 1 tablet Lisinopril [facility] 53727110102 40 Active TAKE ONE TABLET BY MOUTH EVERY DAY Celebrex [facility] 44554544243 200 Active TAKE ONE CAPSULE BY MOUTH DAILY Benzonatate [facility] [address]-43 200 MG Orally Three times a day prn cough March 07, 2017 Active 1 capsule as needed Flonase [facility] [address]-04 50 MCG/ACT Nasally Once a day Sep 09, 2013 Active 1 spray in each nostril Aspirin [facility] [address]-28 81 MG Orally Once a day Active 1 tablet Gabapentin [facility] [address]-50 100 MG Orally three times a day (tid) as needed for (prn) nerve pain Sep 16, 2016 Active 1 capsule Loratadine [facility] 25944625617 10 by mouth daily Active take one tablet by mouth daily Hydrochlorothiazide [facility] 91671631540 25 Active TAKE ONE TABLET BY MOUTH ONCE A DAY Paxil [facility] 88033732952 20 Active TAKE ONE TABLET BY MOUTH DAILY Nexium [facility] [address]-20 20 MG Orally daily Active 1 capsule Lorazepam [facility] 55170984138 0.5 Active TAKE ONE TABLET BY MOUTH DAILY NEEDED FOR ANXIETY NEEDED Fenofibrate [facility] 50396497639 54 Active TAKE ONE TABLET BY MOUTH DAILY WITH A MEAL Vital Signs Date/Time: March 30, 2017 BMI 25.82 Index Weight 160 lbs Height 66 in Temperature 97.9 F Cardiac Monitoring Heart Rate 78 /min Blood Pressure Diastolic 84 mm Hg Blood Pressure Systolic 124 mm Hg Results No Known Results Summary Purpose [employer]Works Submission
--- OUTSIDE RECORDS SUMMARY | 2018-08-16 03:38 | XMS REPORT ---
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 Picker Tender Helper Name Role Phone Yomi Barajas Unavailable Encounters Encounter Location Date Refill [place], [place] Aug 25, 2014 H&P 2013 Y[place], [place] April 24, 2014 bacterial infection Y[place] Bar[place] DO, [place] Jun 30, 2014 medication Y[place], [place] Jul 04, 2014 Problems Problem Type Condition ICD-9 Code Onset Dates Condition Status Assessment Allergic rhinitis due to pollen 477.0 Active Problem Benign hypertensive heart disease without heart failure 402.10 Active Problem Acute upper respiratory infections of unspecified site 465.9 Active Problem Body Mass Index between 19-24, adult V85.1 Active Problem Atherosclerosis of aorta 440.0 Active Problem 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 Active Problem Major depressive disorder, recurrent episode, unspecified 296.30 Active Problem Urinary tract infection, site not specified 599.0 Active Problem Anxiety state, unspecified 300.00 Active Problem Acute pharyngitis 462 Active Problem Cellulitis and abscess of other specified site 682.8 Active Problem Abdominal aneurysm, ruptured 441.3 Active Problem Insomnia, unspecified 780.52 Active Problem Body Mass Index 25.0-25.9, adult V85.21 Active Problem Mixed 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.33 Active Problem Generalized osteoarthrosis, unspecified site 715.00 Active Problem Regional enteritis of unspecified site 555.9 Active Problem Mechanical complication of genitourinary device, implant, and graft, other 996.39 Active Problem Unspecified essential hypertension 401.9 Active Problem 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 Active Problem Aortic aneurysm of unspecified site without mention of rupture 441.9 Active Problem Other and unspecified hyperlipidemia 272.4 Active Problem 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 Problem Allergic rhinitis due to pollen 477.0 Active Problem Cystocele without mention of uterine prolapse, midline 618.01 Active Problem Anal or rectal pain 569.42 Active Problem Unspecified hemorrhoids without mention of complication 455.6 Active Problem Pernicious anemia 281.0 Active Problem Need for prophylactic vaccination and inoculation, Influenza V04.81 Active Problem Other chronic pain 338.29 Active Medications Medication Code System Code Instructions Start Date End Date Status Dosage Loratadine [facility] [address]-58 10 Aug 20, 2015 Active TAKE ONE TABLET BY MOUTH EVERY DAY Social History Social History Element Qualifiers Date Reported Tobacco Use: . Are you a: never smoker Jun 30, 2014 Do you exercise? . Answer: No Jun 30, 2014 Do you drink alcohol? . Status: Yes, Type: Socially Jun 30, 2014 Summary Purpose eClinicalWorks Submission
--- OUTSIDE RECORDS SUMMARY | 2018-08-16 03:38 | XMS REPORT ---
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 Double Cut Sawyer Name Role Phone Yomi Barajas CP Unavailable Encounters Encounter Location Date Refill Yomi [...] Yomi Bar[place], [place] Jul 04, 2014 dizziness Yomi Barajas [place], [place] Oct 02, 2014 Problems Problem Type Condition ICD-9 Code Onset Dates Condition Status Problem Benign hypertensive heart disease without heart failure 402.10 Active Problem Acute upper respiratory infections of unspecified site 465.9 Active Problem Body Mass Index between 19-24, adult V85.1 Active Problem Atherosclerosis of aorta 440.0 Active Problem Major depressive disorder, recurrent episode, unspecified 296.30 Active Problem Urinary tract infection, site not specified 599.0 Active Problem Anxiety state, unspecified 300.00 Active Problem Acute pharyngitis 462 Active Problem Mechanical complication of genitourinary device, implant, and graft, other 996.39 Active Problem Abdominal aneurysm, ruptured 441.3 Active Problem 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 Active Problem Cellulitis and abscess of other specified site 682.8 Active Problem Regional enteritis of unspecified site 555.9 Active Problem Insomnia, unspecified 780.52 Active Problem Cystocele without mention of uterine prolapse, midline 618.01 Active Problem Mixed 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.33 Active Problem Acute frontal sinusitis 461.1 Active Problem Generalized osteoarthrosis, unspecified site 715.00 Active Problem Other and unspecified hyperlipidemia 272.4 Active Problem Unspecified essential hypertension 401.9 Active Problem Body Mass Index 25.0-25.9, adult V85.21 Active Problem Aortic aneurysm of unspecified site without mention of rupture 441.9 Active Problem Allergic rhinitis due to pollen 477.0 Active Problem Need for prophylactic vaccination and inoculation, Influenza V04.81 Active Problem Anal or rectal pain 569.42 Active Problem 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 Problem Pernicious anemia 281.0 Active Problem 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 Active Problem Other chronic pain 338.29 Active Problem Unspecified hemorrhoids without mention of complication 455.6 Active Medications Medication Code System Code Instructions Start Date End Date Status Dosage Levaquin [facility] [address]-45 500 mg Orally every day (qd) Sep 25, 2014 Oct 09, 2014 Active 1 tablet Social History Social History Element Qualifiers Date Reported Tobacco Use: . Are you a: never smoker Oct 02, 2014 Do you exercise? . Answer: No Oct 02, 2014 Do you drink alcohol? . Status: Yes, Type: Socially Oct 02, 2014 Family history Qualifier Description Comment Date Reported Siblings sister Oct 02, 2014 Summary Purpose [employer]ClinicalWorks Submission
--- OUTSIDE RECORDS SUMMARY | 2018-08-16 03:38 | XMS REPORT ---
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 Ventilated Rib Fitter Name Role Phone Yomi Barajas CP Unavailable Allergies, Adverse Reactions, Alerts Substance Reaction Event Type sulfa Info Not Available Drug Allergy Encounters Encounter Location Date H&P 2013 Y[place], [place] April 24, 2014 bacterial infection Yomi Barajas DO, [place] Jun 30, 2014 Problems Problem Type Condition ICD-9 Code Onset Dates Condition Status Assessment Regional enteritis of unspecified site 555.9 Active Assessment Insomnia, unspecified 780.52 Active Assessment Urinary tract infection, site not specified 599.0 Active Problem Benign hypertensive heart disease without [...] Start Date End Date Status Dosage Celebrex [facility] [address]-64 200 Active TAKE ONE CAPSULE BY MOUTH EVERY DAY Hydrochlorothiazide [facility] 66587409694 25 Active TAKE ONE TABLET BY MOUTH EVERY DAY Cipro [facility] [address]-47 500 mg Orally every 12 hrs Jun 30, 2014 Jul 10, 2014 Active 1 tablet Amlodipine Besylate [facility] 85823599023 5 Active TAKE ONE TABLET BY MOUTH EVERY DAY Loratadine [facility] [address]-27 10 Active TAKE ONE TABLET BY MOUTH EVERY DAY Fenofibrate [facility] [address]-83 54 MG Orally Once a day Oct 23, 2013 Active 1 tablet with a meal Paroxetine HCl [facility] [address]-95 20 Active TAKE ONE TABLET BY MOUTH EVERY DAY Lisinopril [facility] 51804435414 40 Active TAKE ONE TABLET BY MOUTH EVERY DAY Flonase [facility] [address]-09 50 MCG/ACT Nasally Once a day Sep 09, 2013 Active 1 spray in each nostril Ambien [facility] [address]-08 5 MG Orally Once a day for sleep Oct 14, 2013 Active 1 tablet at bedtime Flagyl [facility] [address]-53 500 mg Orally Three times a day Jun 30, 2014 Jul 10, 2014 Active 1 tablet Zolpidem Tartrate [facility] [address]-68 5 Active TAKE ONE TABLET BY MOUTH AT BEDTIME Lorazepam [facility] [address]-79 0.5 Active TAKE ONE TABLET BY MOUTH EVERY DAY NEEDED FOR ANXIETY Mupirocin [facility] [address]-01 2 % Externally Three times a day April 05, 2013 Active as directed Social History Social History Element Qualifiers Date Reported Tobacco Use: . Are you a: never smoker Jun 30, 2014 Do you exercise? . Answer: No Jun 30, 2014 Do you drink alcohol? . Status: Yes, Type: Socially Jun 30, 2014 Family history Qualifier Description Comment Date Reported Siblings sister Jun 30, 2014 Vital Signs Date/Time: Jun 30, 2014 Weight 162 lbs Height 66 in Temperature 98.9 F Cardiac Monitoring Heart Rate 66 /min Blood Pressure Diastolic 82 mm Hg Blood Pressure Systolic 124 mm Hg Summary Purpose eClinicalWorks Submission
--- OUTSIDE RECORDS SUMMARY | 2018-08-16 03:38 | XMS REPORT ---
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 Product Marketing Executive Name Role Phone Yomi Barajas CP Unavailable Encounters Encounter Location Date Refill Yomi Barajas [place], [place] Aug 25, 2014 Allergies Yomi Barajas DO, [place] Sep 03, 2014 refills Yomi Barajas DO, [place] Sep 23, 2014 Sinus pain Yomi Barajas DO, [place] Sep 25, 2014 H&P 2014 Yomi Barajas DO, [place] April 24, 2014 Refill Yomi Barajas DO, [place] May 29, 2015 bacterial infection Yomi Barajas DO, [place] Jun 30, 2014 medication Yomi Barajas DO, [place] Jul 04, 2014 cramps, H&P Yomi Barajas DO, [place] March 20, 2015 dizziness Yomi Barajas DO, [place] Oct 02, 2014 Unknown Yomi Barajas DO, [place] Nov 18, 2014 Problems Problem Type Condition ICD-9 Code Onset Dates Condition Status Problem Acute upper respiratory infections of unspecified site 465.9 Active Problem Benign hypertensive heart disease without heart failure 402.10 Active Problem Atherosclerosis of aorta 440.0 Active Problem Body Mass Index between 19-24, adult V85.1 Active Problem Major depressive disorder, recurrent episode, unspecified 296.30 Active Problem Anxiety state, unspecified 300.00 Active Problem Mechanical complication of genitourinary device, implant, and graft, other 996.39 Active Problem Generalized osteoarthrosis, unspecified site 715.00 Active Problem Mixed 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.33 Active Problem 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 Active Problem Cystocele without mention of uterine prolapse, midline 618.01 Active Problem Unspecified essential hypertension 401.9 Active Problem Anal or rectal pain 569.42 Active Problem Other and unspecified hyperlipidemia 272.4 Active Problem Body Mass Index 25.0-25.9, adult V85.21 Active Problem Aortic aneurysm of unspecified site without mention of rupture 441.9 Active Problem Hypersomnia due to another medical condition 327.14 Active Problem Dizziness 780.4 Active Problem Need for prophylactic vaccination and inoculation, Influenza V04.81 Active Problem Allergic rhinitis due to pollen 477.0 Active Problem Neoplasm of uncertain behavior of skin 238.2 Active Problem 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 Problem Regional enteritis of unspecified site 555.9 Active Problem Insomnia, unspecified 780.52 Active Problem Orthostatic hypotension 458.0 Active Problem Acute frontal sinusitis 461.1 Active Problem Pernicious anemia 281.0 Active Assessment Other and unspecified hyperlipidemia 272.4 Active Problem 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 Active Problem Other chronic pain 338.29 Active Problem Unspecified hemorrhoids without mention of complication 455.6 Active Problem Abdominal aneurysm, ruptured 441.3 Active Problem Cellulitis and abscess of other specified site 682.8 Active Problem Urinary tract infection, site not specified 599.0 Active Problem Acute pharyngitis 462 Active Medications Medication Code System Code Instructions Start Date End Date Status Dosage Fenofibrate [facility] [address]-44 54 Orally daily Active TAKE ONE TABLET BY MOUTH EVERY DAY WITH A MEAL Social History Social History Element Qualifiers Date Reported Tobacco Use: . Are you a: never smoker March 20, 2015 Use of recreational / street drugs? . Answer: No March 20, 2015 Do you exercise? . Answer: No March 20, 2015 Do you drink alcohol? . Status: Yes, Type: Socially March 20, 2015 Summary Purpose eClinicalWorks Submission
--- OUTSIDE RECORDS SUMMARY | 2018-08-16 03:38 | XMS REPORT ---
Author Author Yomi Barajas [facility] eClinicalWorks Address Unknown Phone Unavailable Care Team Providers Care Backup Administrative Coordinator Name Role Phone Yomi Barajas Unavailable Encounters [...] 2014 Unknown Yomi Barajas DO, [place] Dec 16, 2016 Unknown Yomi Barajas DO, [place] Sep 16, 2016 Unknown Yomi Barajas DO, [place] Dec 13, 2016 Unknown Yomi Barajas DO, [place] Dec 21, 2015 Needs your advice Yomi Barajas DO, [place] March 01, 2016 Refill Yomi Barajas DO, [place] May 29, 2015 Medication refills Yomi Barajas DO, [place] Aug 07, 2015 Problems Problem Type Condition ICD-9 Code Onset Dates Condition Status Problem Other [...] Instructions Start Date End Date Status Dosage Cipro [facility] [address]-71 250 MG Orally every 12 hrs Dec 16, 2016 Dec 23, 2016 Active 1 tablet Social History Social History Element Qualifiers Date Reported Tobacco Use: . Are you a: never smoker Dec 13, 2016 Use of recreational / street drugs? . Answer: No Dec 13, 2016 Marital Status: . , lives with grand daughter Dec 13, 2016 Do you exercise? . Answer: Yes, Type: walking 2-3 times/week Dec 13, 2016 Do you drink alcohol? . Status: Yes, Type: Socially Dec 13, 2016 Summary Purpose eClinicalWorks Submission
--- OUTSIDE RECORDS SUMMARY | 2018-08-16 03:38 | XMS REPORT ---
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 Retail Sales Associate Name Role Phone Yomi Barajas CP Unavailable Allergies, Adverse Reactions, Alerts Substance Reaction Event Type sulfa Info Not Available Drug Allergy Encounters Encounter Location Date H&P 2013 Yomi Barajas [place], [place] April 24, 2014 Problems Problem Type Condition ICD-9 Code Onset Dates Condition Status Assessment Need for prophylactic vaccination and inoculation, Influenza V04.81 Active Assessment Allergic rhinitis due to pollen 477.0 Active Assessment Body Mass Index 25.0-25.9, adult V85.21 Active Assessment Other chronic pain 338.29 Active Assessment Unspecified hemorrhoids without mention of complication 455.6 Active Assessment Pernicious anemia 281.0 Active Assessment Benign hypertensive heart disease without heart failure 402.10 Active Problem Benign hypertensive heart disease without heart failure 402.10 Active Problem Acute upper respiratory infections of unspecified site 465.9 Active Problem Body Mass Index between 19-24, adult V85.1 Active Problem Atherosclerosis of aorta 440.0 Active Problem Mechanical complication of genitourinary device, implant, and graft, other 996.39 Active Problem Anxiety state, unspecified 300.00 Active Problem Major depressive disorder, recurrent episode, unspecified 296.30 Active Problem Cystocele without mention of uterine prolapse, midline 618.01 Active Problem Anal or rectal pain 569.42 Active Problem Generalized osteoarthrosis, unspecified site 715.00 Active Problem Mixed 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.33 Active Problem Need for prophylactic vaccination and inoculation, Influenza V04.81 Active Problem Other chronic pain 338.29 Active Problem 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 Problem Allergic rhinitis due to pollen 477.0 Active Assessment Insomnia, unspecified 780.52 Active Assessment Other and unspecified hyperlipidemia 272.4 Active Assessment Routine general medical examination at health care facility V70.0 Active Assessment Aortic aneurysm of unspecified site without mention of rupture 441.9 Active Problem Unspecified hemorrhoids without mention of complication 455.6 Active Problem Pernicious anemia 281.0 Active Problem 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 Active Problem Acute pharyngitis 462 Active Problem Urinary tract infection, site not specified 599.0 Active Problem Aortic aneurysm of unspecified site without mention of rupture 441.9 Active Problem Other and unspecified hyperlipidemia 272.4 Active Problem Body Mass Index 25.0-25.9, adult V85.21 Active Assessment Anxiety state, unspecified 300.00 Active Problem Cellulitis and abscess of other specified site 682.8 Active Assessment Major depressive disorder, recurrent episode, unspecified 296.30 Active Problem Abdominal aneurysm, ruptured 441.3 Active Assessment Atherosclerosis of aorta 440.0 Active Problem Unspecified essential hypertension 401.9 Active Assessment Unspecified essential hypertension 401.9 Active Problem 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 Active Assessment 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 Active Assessment Anal or rectal pain 569.42 Active Assessment 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 Assessment Mixed 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.33 Active Assessment Cystocele without mention of uterine prolapse, midline 618.01 Active Assessment Mechanical complication of genitourinary device, implant, and graft , other 996.39 Active Assessment Generalized osteoarthrosis, unspecified site 715.00 Active Medications Medication Code System Code Instructions Start Date End Date Status Dosage Amlodipine Besylate [facility] [address]-29 5 MG Orally Once a day Active 1 tablet Hydrochlorothiazide [facility] 09756137004 25 Active TAKE ONE TABLET BY MOUTH EVERY DAY Celebrex [facility] [address]-84 200 Active TAKE ONE CAPSULE BY MOUTH EVERY DAY Lisinopril [facility] [address]-40 40 Active TAKE ONE TABLET BY MOUTH EVERY DAY Fenofibrate [facility] [address]-66 54 MG Orally Once a day Oct 23, 2013 Active 1 tablet with a meal Lorazepam [facility] [address]-49 0.5 Active TAKE ONE TABLET BY MOUTH EVERY DAY NEEDED FOR ANXIETY Zolpidem Tartrate [facility] [address]-24 5 Active TAKE ONE TABLET BY MOUTH AT BEDTIME Ambien [facility] [address]-05 5 MG Orally Once a day Oct 14, 2013 Active 1 tablet at bedtime Cyanocobalamin [facility] [address]-82 1000 MCG/ML Injection 1 Qweek x 4 then q 2weeks Aug 09, 2013 Jun 23, 2014 Active 1 ml Loratadine [facility] [address]-62 10 Active TAKE ONE TABLET BY MOUTH EVERY DAY Mupirocin [facility] [address]-66 2 % Externally Three times a day April 05, 2013 Active as directed Paroxetine HCl [facility] [address]-96 20 Active TAKE ONE TABLET BY MOUTH EVERY DAY Flonase [facility] [address]-78 50 MCG/ACT Nasally Once a day Sep 09, 2013 Active 1 spray in each nostril Social History Social History Element Qualifiers Date Reported Tobacco Use: . Are you a: never smoker April 24, 2014 Do you exercise? . Answer: No April 24, 2014 Do you drink alcohol? . Status: Yes, Type: Socially April 24, 2014 Family history Qualifier Description Comment Date Reported Siblings sister April 24, 2014 Vital Signs Date/Time: April 24, 2014 Weight 160 lbs Height 66 in Temperature 98.5 F Cardiac Monitoring Heart Rate 72 /min Blood Pressure Diastolic 62 mm Hg Blood Pressure Systolic 104 mm Hg Summary Purpose [employer] Submission
--- OUTSIDE RECORDS SUMMARY | 2018-08-16 03:38 | XMS REPORT ---
Author Author oYmi Barajas Organization [employer] Address Unknown Phone Unavailable Care Team Providers Care Contract Serviceman Name Role Phone Yomi Barajas CP Unavailable [...] Instructions Start Date End Date Status Dosage Lorazepam [facility] [address]-87 0.5 MG Orally Once a day prn anxiety Sep 23, 2014 Active 1 tablet Cyclobenzaprine HCl [facility] [address]-98 10 mg Orally Three times a day prn muscle spasm Sep 23, 2014 Dec 22, 2014 Active 1 tablet Social History Social [...]
--- OUTSIDE RECORDS SUMMARY | 2018-08-16 03:38 | XMS REPORT ---
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 Manager Of Loss Prevention Operations Name Role Phone Yomi Barajas CP Unavailable [...] DO, [place] Oct 02, 2014 Unknown Yomi Barajsa DO, [place] Nov 18, 2014 Unknown Yomi [...] Problem First degree hemorrhoids K64.0 Active Problem Pernicious anemia D51.0 Active Problem [...] I11.9 Active Problem Senile cataract H25.9 Active Problem [...] Instructions Start Date End Date Status Dosage Azithromycin [facility] [address]-09 250 MG Orally Once a day March 02, 2016 March 07, 2016 Active 2 tablets on the first day, then 1 tablet daily for 4 days Szjcholo-Wlurhdvro-Sokjilmf [facility] [address]-78 3.5-25504-4.1 Ophthalmic Four times a day March 02, 2016 Active 1 drop into affected eye Social History Social History Element Qualifiers Date Reported Tobacco Use: . Are you a: never smoker Dec 21, 2015 Use of recreational / street drugs? . Answer: No Dec 21, 2015 Marital Status: . , lives with grand daughter Dec 21, 2015 Do you exercise? . Answer: No Dec 21, 2015 Do you drink alcohol? . Status: Yes, Type: Socially Dec 21, 2015 Summary Purpose [employer] Submission
--- OUTSIDE RECORDS SUMMARY | 2018-08-16 03:38 | XMS REPORT ---
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.10 Active Problem Body Mass Index between 19-24, adult V85.1 Active Problem Atherosclerosis of aorta 440.0 Active Problem Major depressive disorder, recurrent episode, unspecified 296.30 Active Problem Anxiety state, unspecified 300.00 Active Problem Mechanical complication of genitourinary device, implant, and graft, other 996.39 Active Problem Abdominal aneurysm, ruptured 441.3 Active Problem Generalized osteoarthrosis, unspecified site 715.00 Active Problem Cellulitis and abscess of other specified site 682.8 Active Problem Mixed 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.33 Active Problem 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 Active Problem Other and unspecified hyperlipidemia 272.4 Active Problem Unspecified essential hypertension 401.9 Active Problem Orthostatic hypotension 458.0 Active Problem Acute frontal sinusitis 461.1 Active Problem 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 Problem Anal or rectal pain 569.42 Active Problem Dizziness 780.4 Active Problem Cystocele without mention of uterine prolapse, midline 618.01 Active Problem Body Mass Index 25.0-25.9, adult V85.21 Active Problem Aortic aneurysm of unspecified site without mention of rupture 441.9 Active Problem Regional enteritis of unspecified site 555.9 Active Problem Insomnia, unspecified 780.52 Active Problem Other chronic pain 338.29 Active Problem Unspecified hemorrhoids without mention of complication 455.6 Active Problem Allergic rhinitis due to pollen 477.0 Active Problem Need for prophylactic vaccination and inoculation, Influenza V04.81 Active Problem Urinary tract infection, site not specified 599.0 Active Problem Acute pharyngitis 462 Active Problem Pernicious anemia 281.0 Active Problem 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 Active Medications Medication Code System Code Instructions Start Date End Date Status Dosage Lorazepam [facility] [address]-23 0.5 MG Orally Once a day prn anxiety Sep 23, 2014 Active 1 tablet Cyclobenzaprine HCl [facility] [address]-41 10 mg Orally Three times a day prn muscle spasm Sep 23, 2014 Dec 22, 2014 Inactive 1 tablet Loratadine [facility] [address]-49 10 Aug 20, 2015 Active TAKE ONE TABLET BY MOUTH EVERY DAY Amlodipine Besylate [facility] 86510113657 5 Inactive TAKE ONE TABLET BY MOUTH EVERY DAY PredniSONE [facility] [address]-35 10 mg Orally 3 tabs QD x3 days, 2 tabs QD x5 days, 1 tab QD x 5 days Sep 03, 2014 Active as directed Hydrochlorothiazide [facility] 52460072260 25 Active TAKE ONE TABLET BY MOUTH EVERY DAY Paroxetine HCl [facility] [address]-61 20 Active TAKE ONE TABLET BY MOUTH EVERY DAY Ambien [facility] [address]-08 5 MG Orally Once a day for sleep Oct 14, 2013 Active 1 tablet at bedtime Fenofibrate [facility] [address]-34 54 Active TAKE ONE TABLET BY MOUTH EVERY DAY WITH A MEAL Lisinopril [facility] 01312378387 40 Active TAKE ONE TABLET BY MOUTH EVERY DAY Celebrex [facility] [address]-45 200 Active TAKE ONE CAPSULE BY MOUTH EVERY DAY Flonase [facility] [address]-99 50 MCG/ACT Nasally Once a day Sep 09, 2013 Active 1 spray in each nostril [facility] [address]-47 500 mg Orally every day (qd) Sep [...] Date Reported Siblings sister Oct 02, 2014 Vital Signs Date/Time: Oct 02, 2014 Weight 163 lbs Height 66 in Temperature 98.0 F Cardiac Monitoring Heart Rate 66 /min Blood Pressure Diastolic 78 mm Hg Blood Pressure Systolic 130 mm Hg Summary Purpose eClinicalWorks Submission
--- OUTSIDE RECORDS SUMMARY | 2018-08-16 03:38 | XMS REPORT ---
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 Oim Consultant Name Role Phone Yomi Barajas CP Unavailable Allergies, Adverse Reactions, Alerts Substance Reaction Event Type sulfa Info Not Available Drug Allergy Encounters Encounter Location Date Refill Yomi Bar[place], [place] Aug 25, 2014 Allergies Yomi Barajas DO, [place] Sep 03, 2014 H&P 2014 Y[place] Bar[place], [place] April 24, 2014 bacterial infection Yomi Barajas DO, [place] Jun 30, 2014 medication Yomi Barajas [place], [place] Jul 04, 2014 Problems Problem Type Condition ICD-9 Code Onset Dates Condition Status Assessment Flu vaccine need V04.81 Active Assessment Acute frontal sinusitis 461.1 Active Assessment Allergic rhinitis due to pollen [...] Instructions Start Date End Date Status Dosage Ambien [facility] [address]-57 5 MG Orally Once a day for sleep Oct 14, 2013 Active 1 tablet at bedtime Fenofibrate [facility] [address]-70 54 Active TAKE ONE TABLET BY MOUTH EVERY DAY WITH A MEAL Lorazepam [facility] [address]-45 0.5 Active TAKE ONE TABLET BY MOUTH EVERY DAY NEEDED FOR ANXIETY Lisinopril [facility] 88673540863 40 Active TAKE ONE TABLET BY MOUTH EVERY DAY Zolpidem Tartrate [facility] [address]-10 5 Active TAKE ONE TABLET BY MOUTH AT BEDTIME Mupirocin [facility] [address]-04 2 % Externally Three times a day April 05, 2013 Active as directed Celebrex [facility] [address]-57 200 Active TAKE ONE CAPSULE BY MOUTH EVERY DAY Zithromax Z-Arnulfo [facility] [address]-44 250 MG Orally Once a day Sep 03, 2014 Sep 08, 2014 Active 2 tablets on the first day, then 1 tablet daily for 4 days Amlodipine Besylate [facility] 54203220456 5 Active TAKE ONE TABLET BY MOUTH EVERY DAY Hydrochlorothiazide [facility] 80776833273 25 Active TAKE ONE TABLET BY MOUTH EVERY DAY Loratadine [facility] [address]-78 Aug 20, 2015 Active TAKE ONE TABLET BY MOUTH EVERY DAY Paroxetine HCl [facility] [address]-78 20 Active TAKE ONE TABLET BY MOUTH EVERY DAY Flonase [facility] [address]-25 50 MCG/ACT Nasally Once a day Sep 09, 2013 Active 1 spray in each nostril PredniSONE [facility] [address]-38 10 mg Orally 3 tabs QD x3 days, 2 tabs QD x5 days, 1 tab QD x 5 days Sep 03, 2014 Active as directed PredniSONE [facility] [address]-70 10 mg Orally 3 tabs QD x3 days, 2 tabs QD x5 days, 1 tab QD x 5 days Jul 04, 2014 Active as directed Social History Social History Element Qualifiers Date Reported Tobacco Use: . Are you a: never smoker Sep 03, 2014 Do you exercise? . Answer: No Sep 03, 2014 Do you drink alcohol? . Status: Yes, Type: Socially Sep 03, 2014 Family history Qualifier Description Comment Date Reported Siblings sister Sep 03, 2014 Vital Signs Date/Time: Sep 03, 2014 Weight 162 lbs Height 66 in Temperature 98.6 F Cardiac Monitoring Heart Rate 72 /min Blood Pressure Diastolic 72 mm Hg Blood Pressure Systolic 122 mm Hg Immunizations Vaccine Administration Date Flu Vaccine - Medicare Sep 03, 2014 Summary Purpose [employer]ClinicalWorks Submission
--- OUTSIDE RECORDS SUMMARY | 2018-08-16 03:38 | XMS REPORT ---
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 Active Problem Other chronic pain 338.29 Active Assessment Hypersomnia due to another medical condition 327.14 Active Problem Unspecified hemorrhoids without mention of complication 455.6 Active Problem Abdominal aneurysm, ruptured 441.3 Active Problem Cellulitis and abscess of other specified site 682.8 Active Problem Urinary tract infection, site not specified 599.0 Active Problem Acute pharyngitis 462 Active Medications Medication Code System Code Instructions Start Date End Date Status Dosage Paxil [facility] 85608121462 20 Active TAKE ONE TABLET BY MOUTH EVERY DAY PredniSONE [facility] [address]-58 10 mg Orally 3 tabs QD x3 days, 2 tabs QD x5 days, 1 tab QD x 5 days Sep 03, 2014 Active as directed Paroxetine HCl [facility] [address]-84 20 Active TAKE ONE TABLET BY MOUTH EVERY DAY Levaquin [facility] [address]-56 500 mg Orally every day (qd) March 20, 2015 March 30, 2015 Active 1 tablet Celebrex [facility] 00956122809 200 Active TAKE ONE CAPSULE BY MOUTH EVERY DAY Lisinopril [facility] 46425245052 40 Active TAKE ONE TABLET BY MOUTH EVERY DAY Lorazepam [facility] [address]-50 0.5 MG Orally Once a day prn anxiety Sep 23, 2014 Active 1 tablet Loratadine [facility] [address]-39 10 Aug 20, 2015 Active TAKE ONE TABLET BY MOUTH EVERY DAY Flonase [facility] [address]-34 50 MCG/ACT Nasally Once a day Sep 09, 2013 Active 1 spray in each nostril Hydrochlorothiazide [facility] 48357171282 25 Active TAKE ONE TABLET BY MOUTH EVERY DAY Ambien [facility] [address]-52 5 MG Orally Once a day for sleep Oct 14, 2013 Active 1 tablet at bedtime Fenofibrate [facility] [address]-10 54 Active TAKE ONE TABLET BY MOUTH [...] Status: Yes, Type: Socially March 20, 2015 Family history Qualifier Description Comment Date Reported Siblings sister March 20, 2015 Vital Signs Date/Time: March 20, 2015 Weight 160 lbs Height 66 in Temperature 97.5 F Cardiac Monitoring Heart Rate 66 /min Blood Pressure Diastolic 62 mm Hg Blood Pressure Systolic 118 mm Hg Summary Purpose eClinicalWorks Submission
--- OUTSIDE RECORDS SUMMARY | 2018-08-16 03:38 | XMS REPORT ---
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 Weight Trainer Name Role Phone Yomi Barajas CP Unavailable [...] 18, 2014 Unknown Yomi Barajas DO, [place] Sep 16, 2016 Unknown Yomi Barajas DO, [place] Dec 21, 2015 Needs your advice Yomi Barajas DO, [place] March 01, 2016 Refill Yomi Barajas DO, [place] May 29, 2015 Medication refills Yomi Barajas DO, [place] Aug 07, 2015 Problems Problem Type Condition ICD-9 Code Onset Dates Condition Status Problem Allergic rhinitis due to pollen J30.1 Active Problem 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 Problem Other chronic pain G89.29 Active Problem Need for prophylactic vaccination and inoculation against influenza Z23 Active Problem First degree hemorrhoids K64.0 Active Problem Pernicious anemia D51.0 Active Assessment Sciatica of right side M54.31 Active Problem 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 Active Problem Urinary tract infection N39.0 Active Problem Acute pharyngitis J02.9 Active Problem Neoplasm of uncertain behavior of skin D48.5 Active Problem Abdominal aneurysm, ruptured I71.3 Active Problem Sciatica M54.30 Active Problem Cellulitis of other sites L03.818 Active Problem Need for prophylactic vaccination and inoculation against influenza V04.81 Active Problem RBBB I45.10 Active Problem 1St degree AV block I44.0 Active Problem 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 Active Problem Routine general medical examination at a health care facility Z00.00 Active Problem Other and unspecified hyperlipidemia E78.5 Active Problem Essential hypertension I10 Active Problem Major depressive disorder, recurrent episode F33.9 Active Problem Sciatica of right side M54.31 Active Problem 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 Active Problem Atherosclerosis of aorta I70.0 Active Problem Other specified cardiac dysrhythmias I49.8 Active Problem Body mass index (BMI) of 20.0-20.9 in adult Z68.20 Active Problem Other peripheral vascular disease I73.89 Active Problem Acute upper respiratory infection J06.9 Active Problem Preoperative clearance Z01.818 Active Problem 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 Active Problem Senile cataract H25.9 Active Problem Cystocele, midline N81.11 Active Problem Insomnia G47.00 Active Problem Anal or rectal pain K62.89 Active Problem Regional enteritis K50.90 Active Problem Generalized osteoarthrosis, unspecified site M15.9 Active Problem Aortic aneurysm I71.9 Active Problem Mixed urge and stress incontinence N39.46 Active Problem Body mass index 25.0-25.9, adult Z68.25 Active Problem Anxiety state F41.1 Active Problem Dizziness and giddiness R42 Active Problem Mechanical complication of genitourinary device, implant, and graft, other T83.89XA Active Problem Hypersomnia due to another medical condition 327.14 Active Problem Acute frontal sinusitis J01.10 Active Problem Orthostatic hypotension I95.1 Active Medications Medication Code System Code Instructions Start Date End Date Status Dosage Paxil [facility] 43542016787 February 10, 2016 Active TAKE ONE TABLET BY MOUTH EVERY DAY Flonase [facility] [address]-82 50 MCG/ACT Nasally Once a day Sep 09, 2013 Active 1 spray in each nostril Cyclobenzaprine HCl [facility] 37616099135 10 Orally Three times a day Active 1 tablet as needed for muscle relaxation Hydrochlorothiazide [facility] 41998967153 25 Active TAKE ONE TABLET BY MOUTH ONCE A DAY Baclofen [facility] [address]-26 10 MG Orally Three times a day Sep 16, 2016 January 14, 2017 Active 1 tablet with food or milk Celebrex [facility] 27346093585 200 Active TAKE ONE CAPSULE BY MOUTH DAILY Gabapentin [facility] [address]-43 100 MG Orally three times a day (tid) as needed for (prn) nerve pain Sep 16, 2016 Active 1 capsule Kvmaqcrr-Qsijireim-Ongnpabu [facility] [address]-93 3.5-78897-8.1 Ophthalmic Four times a day March 02, 2016 Active 1 drop into affected eye Lisinopril [facility] 93606846250 40 Active TAKE ONE TABLET BY MOUTH EVERY DAY Loratadine [facility] 36234289560 10 Active TAKE ONE TABLET BY MOUTH DAILY Fenofibrate [facility] 22276939259 54 Active TAKE ONE TABLET BY MOUTH DAILY WITH A MEAL Lorazepam [facility] 45645436655 0.5 Active TAKE ONE TABLET BY MOUTH DAILY NEEDED FOR ANXIETY NEEDED Social History Social History Element Qualifiers Date Reported Tobacco Use: . Are you a: never smoker Sep 16, 2016 Use of recreational / street drugs? . Answer: No Sep 16, 2016 Marital Status: . , lives with grand daughter Sep 16, 2016 Do you exercise? . Answer: No Sep 16, 2016 Do you drink alcohol? . Status: Yes, Type: Socially Sep 16, 2016 Family history Qualifier Description Comment Date Reported Maternal Grandmother Comment not available Sep 16, 2016 Paternal Grandmother Comment not available Sep 16, 2016 Siblings sister Sep 16, 2016 Maternal Grandfather Comment not available Sep 16, 2016 Children Comment not available Sep 16, 2016 Father Comment not available Sep 16, 2016 Paternal Grandfather Comment not available Sep 16, 2016 Mother Comment not available Sep 16, 2016 Other: Comment not available Sep 16, 2016 Vital Signs Date/Time: Sep 16, 2016 Weight 160 lbs Height 66 in Temperature 97.3 F Cardiac Monitoring Heart Rate 74 /min Blood Pressure Diastolic 84 mm Hg Blood Pressure Systolic 122 mm Hg Summary Purpose eClinicalWorks Submission
--- OUTSIDE RECORDS SUMMARY | 2018-08-16 03:38 | XMS REPORT ---
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 Assessment Pernicious anemia 281.0 Active Assessment Benign hypertensive heart disease without heart failure 402.10 Active Assessment Other and unspecified hyperlipidemia 272.4 Active Assessment Regional enteritis of unspecified site 555.9 Active Assessment Urinary tract infection, site not specified 599.0 Active Assessment Insomnia, unspecified 780.52 Active Assessment Other chronic pain 338.29 Active Assessment Need for prophylactic vaccination and inoculation, Influenza V04.81 Active Assessment Body Mass Index between 19-24, adult V85.1 Active Assessment Unspecified hemorrhoids without mention of complication 455.6 Active Assessment Unspecified essential hypertension 401.9 Active Assessment Atherosclerosis of aorta 440.0 Active Assessment Aortic aneurysm of unspecified site without mention of rupture 441.9 Active Assessment 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 Are you a: never smoker Nov 18, 2014 Do you exercise? . Answer: No Nov 18, 2014 Do you drink alcohol? . Status: Yes, Type: Socially Nov 18, 2014 Family history Qualifier Description Comment Date Reported Siblings sister Nov 18, 2014 Vital Signs Date/Time: Nov 18, 2014 Weight 160 lbs Height 66 in Temperature 97.8 F Cardiac Monitoring Heart Rate 64 /min Blood Pressure Diastolic 80 mm Hg Blood Pressure Systolic 122 mm Hg Summary Purpose [employer] Submission
--- OUTSIDE RECORDS SUMMARY | 2018-08-16 03:38 | XMS REPORT ---
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 Occupational Health Specialist Name Role Phone Yomi Barajas Unavailable Encounters [...] Start Date End Date Status Dosage PredniSONE [facility] [address]-59 10 mg Orally 3 tabs QD x3 [...]
--- OUTSIDE RECORDS SUMMARY | 2018-08-16 03:38 | XMS REPORT ---
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 Store Protection Specialist Name Role Phone Yomi Barajas CP Unavailable [...] ICD-9 Code Onset Dates Condition Status Assessment 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 Active Assessment Senile cataract H25.9 Active Assessment Other peripheral vascular disease I73.89 Active Assessment 1St degree AV block I44.0 Active Assessment Other specified cardiac dysrhythmias I49.8 Active Assessment Sciatica of right side M54.31 Active Assessment Neoplasm of uncertain behavior of skin D48.5 Active Problem Other chronic pain G89.29 Active [...] G47.14 Active Problem Essential hypertension I10 Active Assessment Essential hypertension I10 Active Assessment Atherosclerosis of aorta I70.0 Active Assessment Body mass index 25.0-25.9, adult Z68.25 Active Assessment Generalized osteoarthrosis, unspecified site M15.9 Active Assessment Other chronic pain G89.29 Active Assessment Major depressive disorder, recurrent episode F33.9 Active Assessment Anxiety state F41.1 Active Assessment Sciatica M54.30 Active Assessment Allergic rhinitis due to pollen J30.1 Active Assessment Pernicious anemia D51.0 Active Problem Body mass index 25.0-25.9, adult [...] to another medical condition 327.14 Active Assessment Other and unspecified hyperlipidemia E78.5 Active Assessment Regional enteritis K50.90 Active Assessment Insomnia G47.00 Active Assessment Orthostatic hypotension I95.1 Active Assessment First degree hemorrhoids K64.0 Active Assessment RBBB I45.10 Active Assessment Cystocele, midline N81.11 Active Assessment Mixed urge and stress incontinence N39.46 Active Assessment 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 Assessment Anal or rectal pain K62.89 Active Assessment Pre-op evaluation Z01.818 Active Assessment Encounter for general adult medical examination with abnormal findings Z00.01 Active Problem 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 Active Problem Acute upper respiratory infection J06.9 Active Problem Need for prophylactic vaccination and inoculation against influenza V04.81 Active Assessment Abnormal EKG R94.31 Active Problem 1St degree AV block I44.0 [...] Start Date End Date Status Dosage Loratadine [facility] 89992621891 10 Active TAKE ONE TABLET BY MOUTH DAILY Paxil [facility] 87157510910 February 10, 2016 Active TAKE ONE TABLET BY MOUTH EVERY DAY Lorazepam [facility] 31870112448 0.5 Active TAKE ONE TABLET BY MOUTH DAILY NEEDED FOR ANXIETY NEEDED Cyclobenzaprine HCl [facility] 96343772560 10 Orally Three times a day Active 1 tablet as needed for muscle relaxation Flonase [facility] [address]-46 50 MCG/ACT Nasally Once a day Sep 09, 2013 Active 1 spray in each nostril Cfsxlwxm-Gpzmnojis-Zgnjiuyf [facility] [address]-48 3.5-96426-2.1 Ophthalmic Four times a day March 02, 2016 Active 1 drop into affected eye Celebrex [facility] 40302335750 200 Active TAKE ONE CAPSULE BY MOUTH DAILY Cyclobenzaprine HCl [facility] 60278154168 10 Orally Three times a day Active 1 tablet as needed for muscle relaxation Lisinopril [facility] 69156037472 40 Active TAKE ONE TABLET BY MOUTH EVERY DAY Celebrex [facility] 37187122243 200 Active TAKE ONE CAPSULE BY MOUTH DAILY Baclofen [facility] [address]-09 10 MG Orally Three times a day Sep 16, 2016 January 14, 2017 Active 1 tablet with food or milk Hydrochlorothiazide [facility] 58738410984 25 Active TAKE ONE TABLET BY MOUTH ONCE A DAY Gabapentin [facility] [address]-10 100 MG Orally three times a day (tid) as needed for (prn) nerve pain Sep 16, 2016 Active 1 capsule Loratadine [facility] 87085208453 10 Active TAKE ONE TABLET BY MOUTH DAILY Fenofibrate [facility] 15619278706 54 Active TAKE ONE TABLET BY MOUTH DAILY WITH A MEAL Social History Social History [...] Status: Yes, Type: Socially Dec 13, 2016 Family history Qualifier Description Comment Date Reported Maternal Grandmother Comment not available Dec 13, 2016 Paternal Grandmother Comment not available Dec 13, 2016 Siblings sister Dec 13, 2016 Maternal Grandfather Comment not available Dec 13, 2016 Children Comment not available Dec 13, 2016 Father Comment not available Dec 13, 2016 Paternal Grandfather Comment not available Dec 13, 2016 Mother Comment not available Dec 13, 2016 Other: Comment not available Dec 13, 2016 Vital Signs Date/Time: Dec 13, 2016 Weight 160 lbs Height 66 in Temperature 97.1 F Cardiac Monitoring Heart Rate 66 /min Blood Pressure Diastolic 74 mm Hg Blood Pressure Systolic 126 mm Hg Summary Purpose [employer] Submission
--- OUTSIDE RECORDS SUMMARY | 2018-08-16 03:39 | XMS REPORT ---
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
--- OUTSIDE RECORDS SUMMARY | 2018-08-16 03:39 | XMS REPORT ---
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 Name Role Phone Yomi Barajas CP Unavailable [...] 13, 2016 Unknown Yomi Barajas DO, PA Sep [...] Start Date End Date Status Dosage Loratadine [facility] 96537213725 10 Active TAKE ONE TABLET BY MOUTH DAILY Paxil [facility] [id number] February 10, 2016 Active TAKE ONE TABLET BY MOUTH EVERY DAY Lorazepam [facility] 04346920753 0.5 Active TAKE ONE TABLET BY MOUTH DAILY NEEDED FOR ANXIETY NEEDED Cyclobenzaprine HCl [facility] 33894978431 10 Orally Three times a day Active 1 tablet as needed for muscle relaxation Flonase [facility] [address]-98 50 MCG/ACT Nasally Once a day Sep 09, 2013 Active 1 spray in each nostril Rivejoqc-Sswjtrjis-Xvacrifp [facility] [address]-30 3.5-68936-7.1 Ophthalmic Four times a day March 02, 2016 Active 1 drop into affected eye Celebrex [facility] 37530952037 200 Active TAKE ONE CAPSULE BY MOUTH DAILY Cyclobenzaprine HCl [facility] 60198418324 10 Orally Three times a day Active 1 tablet as needed for muscle relaxation Lisinopril [facility] 71044026286 40 Active TAKE ONE TABLET BY MOUTH EVERY DAY Celebrex [facility] 21267497894 200 Active TAKE ONE CAPSULE BY MOUTH DAILY Baclofen [facility] [address]-05 10 MG Orally Three times a day Sep 16, 2016 January 14, 2017 Active 1 tablet with food or milk Hydrochlorothiazide [facility] 74443587300 25 Active TAKE ONE TABLET BY MOUTH ONCE A DAY Gabapentin [facility] [address]-93 100 MG Orally three times a day (tid) as needed for (prn) nerve pain Sep 16, 2016 Active 1 capsule Loratadine [facility] 48824118491 10 Active TAKE ONE TABLET BY MOUTH DAILY Fenofibrate [facility] 24892974721 54 Active TAKE ONE TABLET BY MOUTH [...] Status: Yes, Type: Socially Dec 13, 2016 Vital Signs Date/Time: Dec 13, 2016 Weight 160 lbs Height 66 in Temperature 97.1 F Cardiac Monitoring Heart Rate 66 /min Blood Pressure Diastolic 74 mm Hg Blood Pressure Systolic 126 mm Hg Summary Purpose [employer]Works Submission
== END 2018-07-04 00:17 | disposition home or self-care (01) ==
LOC: ER 20:16
DX: M54.2 Cervicalgia (principal); S16.1XXA Strain of muscle, fascia and tendon at neck level, initial encounter; V43.62XA Car passenger injured in collision with other type car in traffic accident, initial encounter; Y92.488 Other paved roadways as the place of occurrence of the external cause
CPT/HCPCS: 70450; 71045; 72125; 72170; 99283